=== PATIENT | male | born 1965 | race African-American/Black ===

== ENCOUNTER 2017-10-17 04:00 | Emergency (ER) | payer OTHER ==
[~2017-10-17] VITALS: Ht 188 cm; Wt 97.7 kg
[~2017-10-17 04:00] MED LIST: ASPI-1188 PO; CHLO25TA3 PO; DIPH50 PO; DIVA250T45 PO; DOCU250C91 PO; ESOM20CA31 PO; LACT300R PO; MIRT30 PO; PALI6 PO; PERP2TAB6 PO; QUET300T2 PO; SIMV20TA6 PO
[2017-10-17 04:13] LABS: GLUCOSE,POINT OF CARE 120 MG/DL (70-110)
[2017-10-17] MEDS ORDERED: DIVA500T35 PO (04:15)
[2017-10-17] MEDS ORDERED: MULT-1203 PO (04:15)
[2017-10-17] MEDS ORDERED: ACET-48 PO (04:15)
[2017-10-17] MEDS ORDERED: QUET300T2 PO (04:15)
[2017-10-17] MEDS ORDERED: METF500T4 PO (04:15)
[2017-10-17] MEDS ORDERED: TRAM50TA4 PO (04:15)
[2017-10-17] MEDS ORDERED: SUMAtriptan SUCCINATE 6 MG/0.5 ML VIAL SQ ONE (04:30)
[2017-10-17 05:13] VITALS: BP 152/92
== END 2017-10-17 05:20 | disposition home or self-care (01) ==
LOC: EMS 04:01
DX: G44.009 Cluster headache syndrome, unspecified, not intractable (principal); I10 Essential (primary) hypertension; E78.00 Pure hypercholesterolemia, unspecified; F19.90 Other psychoactive substance use, unspecified, uncomplicated; F17.210 Nicotine dependence, cigarettes, uncomplicated; Z88.6 Allergy status to analgesic agent
CPT/HCPCS: 82962; 96372; 99283; J3030

== ENCOUNTER → 2019-03-02 | Outpatient (CLI) | payer OTHER ==
[~2019-03-02] VITALS: Ht 188 cm; Wt 95.0 kg
[~2019-03-02] MED LIST changes: +ACET-48 PO; -CHLO25TA3 PO; +DIVA-78 PO; -DIVA250T45 PO; -LACT300R PO; +METF-960 PO; +MULT-1203 PO; +TRAM50TA4 PO
[2019-03-02 09:15] VITALS: BP 143/90
== END | disposition home or self-care (01) ==
LOC: HBOWC 08:46
PROVIDERS: ATTEND Surgery Plastic and Reconstructive Surgery
DX: S91.302D Unspecified open wound, left foot, subsequent encounter (principal); S91.301D Unspecified open wound, right foot, subsequent encounter; L84 Corns and callosities; I10 Essential (primary) hypertension; F17.210 Nicotine dependence, cigarettes, uncomplicated; E78.00 Pure hypercholesterolemia, unspecified; X58.XXXD Exposure to other specified factors, subsequent encounter

== ENCOUNTER → 2019-03-16 | Outpatient (CLI) | payer OTHER ==
[~2019-03-16] MED LIST changes: +CHL25 PO; +MIRT15 PO; +SODIUM HYPOCHLORITE 0.25% [HALF STRENGTH] 473 ML SOLUTION TP ONE
[2019-03-16 11:04] VITALS: BP 140/72
== END | disposition home or self-care (01) ==
LOC: HBOWC 09:59
PROVIDERS: ATTEND Surgery Plastic and Reconstructive Surgery
DX: S91.302D Unspecified open wound, left foot, subsequent encounter (principal); S91.301D Unspecified open wound, right foot, subsequent encounter; L84 Corns and callosities; I10 Essential (primary) hypertension; F17.210 Nicotine dependence, cigarettes, uncomplicated; E78.00 Pure hypercholesterolemia, unspecified; X58.XXXD Exposure to other specified factors, subsequent encounter
CPT/HCPCS: 11043

== ENCOUNTER 2020-04-12 02:31 | Emergency (ER) | payer OTHER ==
[~2020-04-12] VITALS: Ht 188 cm; Wt 94.5 kg
[~2020-04-12 02:31] MED LIST changes: -ACET-48 PO; +ACET-49 PO; -ASPI-1188 PO; +ASPI-1522 PO; -DIPH50 PO; -DIVA-78 PO; +DOCU-342 PO; -DOCU250C91 PO; -METF-960 PO; +MIRT-89 PO; -MIRT15 PO; -MIRT30 PO; -PALI6 PO; -PERP2TAB6 PO; -QUET300T2 PO; +SIMV-43 PO; -SIMV20TA6 PO; -SODIUM HYPOCHLORITE 0.25% [HALF STRENGTH] 473 ML SOLUTION TP ONE; -TRAM50TA4 PO
[2020-04-12] MEDS ORDERED: TRIL8 PO (02:37)
[2020-04-12] MEDS ORDERED: QUET25TA PO (02:37)
[2020-04-12] MEDS ORDERED: DIVA250T45 PO (02:37)
[2020-04-12 03:21] LABS: EOSINOPHILS % (AUTO) 2.1 % (1.0-6.0); HEMATOCRIT 45.4 % (41-53); HEMOGLOBIN 16.3 g/dL (13.5-17.5); LYMPHOCYTES # (AUTO) 2.3 K/uL (1.0-4.8); LYMPHOCYTES % (AUTO) 37.6 % (22.0-44.0); MEAN CORPUSCULAR HEMOGLOBIN 34.7 pg (26.0-34.0); MEAN CORPUSCULAR HGB CONC 35.9 G/dL (31.0-37.0); MEAN CORPUSCULAR VOLUME 97 fL (80-100); MONOCYTES # (AUTO) 0.6 K/uL (0.1-1.0); MONOCYTES % (AUTO) 9.1 % (2.0-9.0); NEUTROPHILS # (AUTO) 3.1 K/uL (1.8-7.7); NEUTROPHILS % (AUTO) 50.2 % (40.0-70.0); PLATELET COUNT (AUTO) 322 K/uL (150-450); RED CELL DISTRIBUTION WIDTH 13.4 % (11.5-14.5)
[2020-04-12 03:30] LABS: ANION GAP 5 mmol/L (8-16); CALCIUM, TOTAL 9.6 mg/dL (8.8-10.5); CARBON DIOXIDE 30 mmol/L (22-29); CHLORIDE 94 mmol/L (98-107); CREATININE 0.86 mg/dL (0.60-1.30); GLOMERULAR FILTR. RATE CALC > 60 mL/min (>60); GLUCOSE,RANDOM 126 mg/dL (70-110); POTASSIUM 4.1 mmol/L (3.5-5.1); SODIUM SERUM 129 mmol/L (136-145); UREA NITROGEN, BLOOD 7 mg/dL (7-18)
[2020-04-12 03:35] LABS: ALANINE AMINOTRANSFERASE 33 U/L (12-78); ALBUMIN 3.6 g/dL (3.4-5.0); ALKALINE PHOSPHATASE 98 U/L (46-116); ASPARTATE AMINOTRANSFERASE 19 U/L (15-37); BILIRUBIN,TOTAL 0.4 mg/dL (0.1-1.0); TOTAL PROTEIN, SERUM 8.6 g/dL (6.4-8.2)
[2020-04-12 03:46] LABS: GLUCOSE,POINT OF CARE 132 MG/DL (70-110)
[2020-04-12 03:51] LABS: B-TYPE NATRIURETIC PEPTIDE < 5 pg/mL (0-100)
[2020-04-12 03:59] LABS: PLATELET MORPHOLOGY COMMENT LARGE PLTS PRESENT
[2020-04-12 04:35] VITALS: BP 145/88
== END 2020-04-12 04:45 | disposition home or self-care (01) ==
LOC: EMS 02:32
DX: R52 Pain, unspecified (principal); I10 Essential (primary) hypertension; E78.00 Pure hypercholesterolemia, unspecified; F31.9 Bipolar disorder, unspecified; F20.9 Schizophrenia, unspecified; F17.210 Nicotine dependence, cigarettes, uncomplicated; F15.90 Other stimulant use, unspecified, uncomplicated
CPT/HCPCS: 93005

== ENCOUNTER 2020-04-12 23:00 | Emergency (ER) | payer OTHER ==
[~2020-04-12] VITALS: Ht 165.1 cm; Wt 75.0 kg
[~2020-04-12 23:00] MED LIST changes: +DIVA250T45 PO; +QUET25TA PO; +TRIL8 PO
[2020-04-12 23:58] LABS: BASOPHILS % (AUTO) 0.8 % (0.0-2.0); EOSINOPHILS % (AUTO) 1.7 % (1.0-6.0); HEMATOCRIT 44.8 % (41-53); HEMOGLOBIN 15.9 g/dL (13.5-17.5); LYMPHOCYTES # (AUTO) 2.1 K/uL (1.0-4.8); LYMPHOCYTES % (AUTO) 36.4 % (22.0-44.0); MEAN CORPUSCULAR HEMOGLOBIN 34.3 pg (26.0-34.0); MEAN CORPUSCULAR HGB CONC 35.5 G/dL (31.0-37.0); MEAN CORPUSCULAR VOLUME 97 fL (80-100); MONOCYTES # (AUTO) 0.6 K/uL (0.1-1.0); MONOCYTES % (AUTO) 9.8 % (2.0-9.0); NEUTROPHILS % (AUTO) 51.3 % (40.0-70.0); PLATELET COUNT (AUTO) 327 K/uL (150-450); RED BLOOD CELL COUNT(AUTO) 4.63 MIL/uL (4.50-5.90); RED CELL DISTRIBUTION WIDTH 13.4 % (11.5-14.5)
[2020-04-13 00:10] LABS: ANION GAP 8 mmol/L (8-16); CALCIUM, TOTAL 9.5 mg/dL (8.8-10.5); CARBON DIOXIDE 26 mmol/L (22-29); CHLORIDE 94 mmol/L (98-107); CREATININE 0.88 mg/dL (0.60-1.30); GLOMERULAR FILTR. RATE CALC > 60 mL/min (>60); GLUCOSE,RANDOM 117 mg/dL (70-110); POTASSIUM 4.2 mmol/L (3.5-5.1); SODIUM SERUM 128 mmol/L (136-145); UREA NITROGEN, BLOOD 10 mg/dL (7-18)
[2020-04-13 00:25] LABS: ALANINE AMINOTRANSFERASE 33 U/L (12-78); ALBUMIN 3.6 g/dL (3.4-5.0); ALKALINE PHOSPHATASE 96 U/L (46-116); ASPARTATE AMINOTRANSFERASE 19 U/L (15-37); BILIRUBIN,TOTAL 0.5 mg/dL (0.1-1.0); THYROID STIMULATING HORMONE 1.02 uIU/mL (0.36-3.74); TOTAL PROTEIN, SERUM 8.5 g/dL (6.4-8.2)
[2020-04-13 03:15] VITALS: BP 150/83
== END 2020-04-13 03:28 | disposition home or self-care (01) ==
LOC: EMS 23:00
DX: R51 Headache (principal); R53.83 Other fatigue; F15.90 Other stimulant use, unspecified, uncomplicated; F17.210 Nicotine dependence, cigarettes, uncomplicated; E78.00 Pure hypercholesterolemia, unspecified; I10 Essential (primary) hypertension; F20.9 Schizophrenia, unspecified; Z79.82 Long term (current) use of aspirin; Z79.899 Other long term (current) drug therapy
CPT/HCPCS: 70450; 84443; 93005

== ENCOUNTER 2020-04-15 15:20 | Inpatient (IN) | payer MEDICAID, OTHER ==
[~2020-04-15] VITALS: Ht 180.3 cm; Wt 83.0 kg
[~2020-04-15 15:20] MED LIST changes: +DIVA-85 PO; -DIVA250T45 PO
[2020-04-15 17:37] LABS: BASOPHILS % (AUTO) 1.1 % (0.0-2.0); EOSINOPHILS % (AUTO) 0.4 % (1.0-6.0); HEMATOCRIT 44.4 % (41-53); HEMOGLOBIN 15.6 g/dL (13.5-17.5); LYMPHOCYTES # (AUTO) 1.3 K/uL (1.0-4.8); LYMPHOCYTES % (AUTO) 20.6 % (22.0-44.0); MEAN CORPUSCULAR HEMOGLOBIN 34.2 pg (26.0-34.0); MEAN CORPUSCULAR HGB CONC 35.2 G/dL (31.0-37.0); MEAN CORPUSCULAR VOLUME 97 fL (80-100); MONOCYTES # (AUTO) 0.7 K/uL (0.1-1.0); MONOCYTES % (AUTO) 10.4 % (2.0-9.0); NEUTROPHILS # (AUTO) 4.4 K/uL (1.8-7.7); NEUTROPHILS % (AUTO) 67.5 % (40.0-70.0); PLATELET COUNT (AUTO) 338 K/uL (150-450); RED BLOOD CELL COUNT(AUTO) 4.58 MIL/uL (4.50-5.90); RED CELL DISTRIBUTION WIDTH 13.4 % (11.5-14.5)
[2020-04-15 17:47] LABS: ANION GAP 6 mmol/L (8-16); CALCIUM, TOTAL 9.9 mg/dL (8.8-10.5); CARBON DIOXIDE 29 mmol/L (22-29); CHLORIDE 98 mmol/L (98-107); CREATININE 0.94 mg/dL (0.60-1.30); GLOMERULAR FILTR. RATE CALC > 60 mL/min (>60); GLUCOSE,RANDOM 110 mg/dL (70-110); POTASSIUM 3.9 mmol/L (3.5-5.1); SODIUM SERUM 133 mmol/L (136-145); UREA NITROGEN, BLOOD 11 mg/dL (7-18)
[2020-04-15 18:02] LABS: ALANINE AMINOTRANSFERASE 45 U/L (12-78); ALBUMIN 3.7 g/dL (3.4-5.0); ALKALINE PHOSPHATASE 111 U/L (46-116); ASPARTATE AMINOTRANSFERASE 32 U/L (15-37); TOTAL PROTEIN, SERUM 8.7 g/dL (6.4-8.2)
[2020-04-15] MEDS ORDERED: HydrOXYzine PAMOATE 50 MG CAPSULE PO PRN (19:15)
[2020-04-15] MEDS ORDERED: GuaiFENesin/D-METHORPHAN [SUGAR-FREE] 200-20MG/10 ML SYRUP UDCUP PO PRN (19:15)
[2020-04-15] MEDS ORDERED: QUEtiapine FUMARATE 100 MG TABLET PO PRN (19:15)
[2020-04-15] MEDS ORDERED: PROMETHAZINE HCL 25 MG TABLET PO PRN (19:15)
[2020-04-15] MEDS ORDERED: MAG HYDROX/AL HYDROX/SIMETH ES 30 ML SUSPENSION UDCUP PO PRN (19:15)
[2020-04-15] MEDS ORDERED: TUBERCULIN, PURIFIED PROTEIN DERIVATIVE 5 TU/0.1 ML SYRINGE ID ONE (19:15)
[2020-04-15] MEDS ORDERED: ACETAMINOPHEN 325 MG TABLET PO PRN (19:15)
[2020-04-15] MEDS ORDERED: MAGNESIUM HYDROXIDE SUSPENSION 30 ML UDCUP PO PRN (19:15)
[2020-04-15] MEDS ORDERED: LOPERAMIDE HCL 2 MG CAPSULE PO PRN (19:15)
[2020-04-15] MEDS ORDERED: LORazepam 2 MG TABLET PO PRN (19:15)
[2020-04-15] MEDS ORDERED: FLUoxetine HCL 10 MG CAPSULE PO ONE ×2 (19:15)
[2020-04-15] MEDS ORDERED: ZOLPIDEM TARTRATE 10 MG TABLET PO PRN (19:15)
[2020-04-15] MEDS: DIVALPROEX SODIUM 500 MG ER TABLET PO SCH ×2 (20:55→20:57)
[2020-04-15] MEDS: THIAMINE 100 MG TABLET PO SCH ×2 (20:55→20:58)
[2020-04-15] MEDS ORDERED: QUEtiapine FUMARATE 200 MG TABLET PO SCH (21:00)
[2020-04-15] MEDS ORDERED: MIRTAZAPINE 15 MG TABLET PO SCH (21:00)
[2020-04-15 22:02] LABS: APPEARANCE,URINE CLEAR (CLEAR); GLUCOSE, URINE (UA) NEGATIVE (NEGATIVE); KETONES,URINE TRACE mg/dL (NEGATIVE); LEUKOCYTE ESTERASE ,URINE NEGATIVE (NEGATIVE); NITRATE,URINE NEGATIVE (NEGATIVE); OCCULT BLOOD,URINE NEGATIVE (NEGATIVE); PROTEIN,URINE POS 1+ (NEGATIVE)
[2020-04-15 22:03] LABS: BILIRUBIN,URINE PRELIM. POSITIVE (NEGATIVE)
[2020-04-15 22:08] LABS: AMPHET/METH SCREEN,URINE NEGATIVE (NEGATIVE); BARBITURATE SCREEN, URINE NEGATIVE (NEGATIVE); BENZODIAZEPINES SCREEN,URINE NEGATIVE (NEGATIVE); CANNABINOID SCREEN,URINE NEGATIVE (NEGATIVE); COCAINE SCREEN,URINE NEGATIVE (NEGATIVE); METHADONE SCREEN, URINE NEGATIVE (NEGATIVE); OPIATE SCREEN,URINE NEGATIVE (NEGATIVE)
[2020-04-15 22:10] LABS: PHENCYCLIDINE SCREEN,URINE NEGATIVE (NEGATIVE)
[2020-04-15 23:35] VITALS: BP 136/78
[2020-04-16 00:01] VITALS: BP 136/78
[2020-04-16] MEDS ORDERED: PNEUMOCOCCAL VACCINE POLYVALENT 0.5 ML VIAL [PPSV23] IM ONE (00:15)
[2020-04-16] MEDS: FOLIC ACID 1 MG TABLET PO SCH (09:00)
[2020-04-16] MEDS: MULTIVITAMINS WITH MINERALS, THERAPEUTIC TABLET PO SCH (09:00)
[2020-04-16] MEDS: ASPIRIN 81 MG EC TABLET PO SCH (09:00)
[2020-04-16] MEDS: FLUoxetine HCL 10 MG CAPSULE PO SCH (09:15)
[2020-04-16 09:47] VITALS: BP 131/77
[2020-04-16 16:07] VITALS: BP 129/87
[2020-04-16] MEDS: DIVALPROEX SODIUM 500 MG ER TABLET PO SCH (16:12)
[2020-04-16] MEDS: THIAMINE 100 MG TABLET PO SCH (16:12)
[2020-04-16] MEDS: CHLORTHALIDONE 25 MG TABLET PO SCH (16:12)
[2020-04-16] MEDS: MIRTAZAPINE 15 MG TABLET PO SCH (20:44)
[2020-04-16] MEDS: SIMVASTATIN 20 MG TABLET PO SCH (20:44)
[2020-04-16] MEDS: QUEtiapine FUMARATE 200 MG TABLET PO SCH (20:44)
[2020-04-17 02:12] VITALS: BP 135/90
[2020-04-17] MEDS: CHLORTHALIDONE 25 MG TABLET PO SCH (08:36)
[2020-04-17] MEDS: ASPIRIN 81 MG EC TABLET PO SCH (08:45)
[2020-04-17] MEDS: DIVALPROEX SODIUM 500 MG ER TABLET PO SCH ×2 (08:45→17:00)
[2020-04-17] MEDS: FLUoxetine HCL 10 MG CAPSULE PO SCH (08:45)
[2020-04-17] MEDS: FOLIC ACID 1 MG TABLET PO SCH (08:45)
[2020-04-17] MEDS: MULTIVITAMINS WITH MINERALS, THERAPEUTIC TABLET PO SCH (08:46)
[2020-04-17] MEDS: THIAMINE 100 MG TABLET PO SCH ×2 (08:46→17:00)
[2020-04-17 09:24] VITALS: BP 135/63
[2020-04-17 16:18] VITALS: BP 139/85
[2020-04-17] MEDS: QUEtiapine FUMARATE 200 MG TABLET PO SCH (21:00)
[2020-04-17] MEDS: SIMVASTATIN 20 MG TABLET PO SCH (21:00)
[2020-04-17] MEDS: MIRTAZAPINE 15 MG TABLET PO SCH (21:00)
[2020-04-18 01:11] VITALS: BP 124/61
[2020-04-18 07:52] LABS: HEMOGLOBIN A1C 5.8 % (3.8-5.6)
[2020-04-18 08:06] LABS: ANION GAP 14 mmol/L (8-16); CALCIUM, TOTAL 9.1 mg/dL (8.8-10.5); CARBON DIOXIDE 24 mmol/L (22-29); CHLORIDE 95 mmol/L (98-107); CHOL/HDL RATIO 3.6 (4.2-7.3); CHOLESTEROL 126 mg/dL (131-200); CREATININE 0.76 mg/dL (0.60-1.30); FREE T4 (FREE THYROXINE) 1.57 ng/dL (0.76-1.46); GLOMERULAR FILTR. RATE CALC > 60 mL/min (>60); GLUCOSE,RANDOM 76 mg/dL (70-110); HDL CHOLESTEROL 35 mg/dL (40-60); LDL CHOL (CALC.) 79 mg/dL (0-130); POTASSIUM 3.7 mmol/L (3.5-5.1); SODIUM SERUM 133 mmol/L (136-145); THYROID STIMULATING HORMONE 0.34 uIU/mL (0.36-3.74); TRIGLYCERIDES 59 mg/dL (15-150); UREA NITROGEN, BLOOD 13 mg/dL (7-18)
[2020-04-18 08:36] VITALS: BP 129/79
[2020-04-18] MEDS: THIAMINE 100 MG TABLET PO SCH ×2 (09:00→17:00)
[2020-04-18] MEDS: DIVALPROEX SODIUM 500 MG ER TABLET PO SCH ×2 (09:00→17:00)
[2020-04-18] MEDS: FOLIC ACID 1 MG TABLET PO SCH (09:00)
[2020-04-18] MEDS: FLUoxetine HCL 10 MG CAPSULE PO SCH (09:00)
[2020-04-18] MEDS: CHLORTHALIDONE 25 MG TABLET PO SCH (09:00)
[2020-04-18] MEDS: MULTIVITAMINS WITH MINERALS, THERAPEUTIC TABLET PO SCH (09:00)
[2020-04-18] MEDS: ASPIRIN 81 MG EC TABLET PO SCH (09:00)
[2020-04-18] MEDS: SULFAMETHOX/TRIMETH DS 800-160 MG/TABLET PO SCH ×2 (09:00→17:00)
[2020-04-18 12:00] VITALS: BP 132/77
[2020-04-18 16:13] VITALS: BP 141/93
[2020-04-18] MEDS: QUEtiapine FUMARATE 200 MG TABLET PO SCH (21:00)
[2020-04-18] MEDS: MIRTAZAPINE 15 MG TABLET PO SCH (21:00)
[2020-04-18] MEDS: SIMVASTATIN 20 MG TABLET PO SCH (21:00)
[2020-04-19 06:25] VITALS: BP 130/78
[2020-04-19 08:34] VITALS: BP 146/79
[2020-04-19] MEDS: CHLORTHALIDONE 25 MG TABLET PO SCH (09:00)
[2020-04-19] MEDS: FLUoxetine HCL 10 MG CAPSULE PO SCH (09:00)
[2020-04-19] MEDS: THIAMINE 100 MG TABLET PO SCH ×2 (09:00→16:31)
[2020-04-19] MEDS: ASPIRIN 81 MG EC TABLET PO SCH (09:00)
[2020-04-19] MEDS: DIVALPROEX SODIUM 500 MG ER TABLET PO SCH ×2 (09:00→16:31)
[2020-04-19] MEDS: FOLIC ACID 1 MG TABLET PO SCH (09:00)
[2020-04-19] MEDS: SULFAMETHOX/TRIMETH DS 800-160 MG/TABLET PO SCH ×2 (09:00→16:31)
[2020-04-19] MEDS: MULTIVITAMINS WITH MINERALS, THERAPEUTIC TABLET PO SCH (09:00)
[2020-04-19] MEDS ORDERED: PALIPERIDONE 1.5 MG ER TABLET PO PRN (14:45)
[2020-04-19] MEDS ORDERED: PALIPERIDONE PALMITATE 234 MG/1.5 ML SYRINGE IM ONE (14:45)
[2020-04-19 16:15] VITALS: BP 134/65
[2020-04-19] MEDS: PALIPERIDONE 3 MG ER TABLET PO SCH (20:49)
[2020-04-19] MEDS: SIMVASTATIN 20 MG TABLET PO SCH (20:49)
[2020-04-19] MEDS: MIRTAZAPINE 15 MG TABLET PO SCH (20:49)
[2020-04-20 00:58] VITALS: BP 127/63
[2020-04-20 08:12] VITALS: BP 127/79
[2020-04-20] MEDS: THIAMINE 100 MG TABLET PO SCH ×2 (09:00→16:36)
[2020-04-20] MEDS: SULFAMETHOX/TRIMETH DS 800-160 MG/TABLET PO SCH ×2 (09:00→16:36)
[2020-04-20] MEDS: CHLORTHALIDONE 25 MG TABLET PO SCH (09:00)
[2020-04-20] MEDS: MULTIVITAMINS WITH MINERALS, THERAPEUTIC TABLET PO SCH (09:00)
[2020-04-20] MEDS: ASPIRIN 81 MG EC TABLET PO SCH (09:00)
[2020-04-20] MEDS: FOLIC ACID 1 MG TABLET PO SCH (09:00)
[2020-04-20] MEDS: DIVALPROEX SODIUM 500 MG ER TABLET PO SCH ×2 (09:00→16:36)
[2020-04-20] MEDS: FLUoxetine HCL 10 MG CAPSULE PO SCH (09:00)
[2020-04-20 16:13] VITALS: BP 137/73
[2020-04-20] MEDS: SIMVASTATIN 20 MG TABLET PO SCH (20:37)
[2020-04-20] MEDS: PALIPERIDONE 3 MG ER TABLET PO SCH (20:37)
[2020-04-20] MEDS: MIRTAZAPINE 15 MG TABLET PO SCH (20:37)
[2020-04-21 01:25] VITALS: BP 147/86
[2020-04-21 08:20] VITALS: BP 142/86
[2020-04-21] MEDS: DIVALPROEX SODIUM 500 MG ER TABLET PO SCH ×2 (09:00→17:00)
[2020-04-21] MEDS: MULTIVITAMINS WITH MINERALS, THERAPEUTIC TABLET PO SCH (09:00)
[2020-04-21] MEDS: FLUoxetine HCL 10 MG CAPSULE PO SCH (09:00)
[2020-04-21] MEDS: ASPIRIN 81 MG EC TABLET PO SCH (09:00)
[2020-04-21] MEDS: THIAMINE 100 MG TABLET PO SCH ×2 (09:00→17:00)
[2020-04-21] MEDS: SULFAMETHOX/TRIMETH DS 800-160 MG/TABLET PO SCH ×2 (09:00→17:00)
[2020-04-21] MEDS: FOLIC ACID 1 MG TABLET PO SCH (09:00)
[2020-04-21] MEDS: CHLORTHALIDONE 25 MG TABLET PO SCH (09:00)
[2020-04-21 16:31] VITALS: BP 140/66
[2020-04-21] MEDS: SIMVASTATIN 20 MG TABLET PO SCH (20:39)
[2020-04-21] MEDS: MIRTAZAPINE 15 MG TABLET PO SCH (20:39)
[2020-04-21] MEDS: PALIPERIDONE 3 MG ER TABLET PO SCH (20:39)
[2020-04-22] VITALS: BP 138/79
[2020-04-22 08:17] VITALS: BP 131/81
[2020-04-22] MEDS: SULFAMETHOX/TRIMETH DS 800-160 MG/TABLET PO SCH ×2 (08:43→17:00)
[2020-04-22] MEDS: ASPIRIN 81 MG EC TABLET PO SCH (08:43)
[2020-04-22] MEDS: CHLORTHALIDONE 25 MG TABLET PO SCH (08:44)
[2020-04-22] MEDS: MULTIVITAMINS WITH MINERALS, THERAPEUTIC TABLET PO SCH (08:44)
[2020-04-22] MEDS: FOLIC ACID 1 MG TABLET PO SCH (08:44)
[2020-04-22] MEDS: THIAMINE 100 MG TABLET PO SCH ×2 (08:44→17:00)
[2020-04-22 16:07] VITALS: BP 138/64
[2020-04-22] MEDS: SIMVASTATIN 20 MG TABLET PO SCH (20:15)
[2020-04-23 01:36] VITALS: BP 136/86
[2020-04-23] MEDS: MULTIVITAMINS WITH MINERALS, THERAPEUTIC TABLET PO SCH (09:00)
[2020-04-23] MEDS: FOLIC ACID 1 MG TABLET PO SCH (09:00)
[2020-04-23] MEDS: ASPIRIN 81 MG EC TABLET PO SCH (09:00)
[2020-04-23] MEDS: THIAMINE 100 MG TABLET PO SCH ×2 (09:00→17:00)
[2020-04-23] MEDS: CHLORTHALIDONE 25 MG TABLET PO SCH (09:00)
[2020-04-23 10:06] VITALS: BP 135/71
[2020-04-23 16:57] VITALS: BP 134/70
[2020-04-23] MEDS: SIMVASTATIN 20 MG TABLET PO SCH (20:04)
[2020-04-24] VITALS: BP 138/81
[2020-04-24] MEDS: MULTIVITAMINS WITH MINERALS, THERAPEUTIC TABLET PO SCH (08:40)
[2020-04-24] MEDS: FOLIC ACID 1 MG TABLET PO SCH (08:40)
[2020-04-24] MEDS: THIAMINE 100 MG TABLET PO SCH ×2 (08:40→17:00)
[2020-04-24] MEDS: ASPIRIN 81 MG EC TABLET PO SCH (08:40)
[2020-04-24] MEDS: CHLORTHALIDONE 25 MG TABLET PO SCH (08:40)
[2020-04-24 09:35] VITALS: BP 135/76
[2020-04-24 16:24] VITALS: BP 114/96
[2020-04-24] MEDS: SIMVASTATIN 20 MG TABLET PO SCH (20:14)
[2020-04-25 00:15] VITALS: BP 112/76
[2020-04-25 08:10] VITALS: BP 147/90
[2020-04-25] MEDS: FOLIC ACID 1 MG TABLET PO SCH (08:48)
[2020-04-25] MEDS: THIAMINE 100 MG TABLET PO SCH (09:00)
[2020-04-25] MEDS: MULTIVITAMINS WITH MINERALS, THERAPEUTIC TABLET PO SCH (09:00)
[2020-04-25] MEDS: CHLORTHALIDONE 25 MG TABLET PO SCH (09:00)
[2020-04-25] MEDS: ASPIRIN 81 MG EC TABLET PO SCH (09:00)
[2020-04-25] MEDS ORDERED: PALIPERIDONE PALMITATE 156 MG/ML SYRINGE IM ONE (09:00)
[2020-04-25] MEDS ORDERED: PALI117D IM (15:49)
[2020-04-25 16:33] VITALS: BP 154/75
[2020-04-25] MEDS: SIMVASTATIN 20 MG TABLET PO SCH (20:19)
[2020-04-26 01:14] VITALS: BP 125/84
[2020-04-26 08:15] VITALS: BP 132/75
[2020-04-26] MEDS: ASPIRIN 81 MG EC TABLET PO SCH (09:00)
[2020-04-26] MEDS: MULTIVITAMINS WITH MINERALS, THERAPEUTIC TABLET PO SCH (09:00)
[2020-04-26] MEDS: CHLORTHALIDONE 25 MG TABLET PO SCH (09:00)
== END 2020-04-26 13:05 | disposition home or self-care (01) | DRG 750 ==
LOC: EMS 15:22 → B2S 20:54 → EMS 22:38
PROVIDERS: ADMIT Psychiatry & Neurology Psychiatry; ATTEND Psychiatry & Neurology Psychiatry
DX: F25.0 Schizoaffective disorder, bipolar type (principal); N28.1 Cyst of kidney, acquired; Z91.19 Patient's noncompliance with other medical treatment and regimen; E78.00 Pure hypercholesterolemia, unspecified; I10 Essential (primary) hypertension; M54.9 Dorsalgia, unspecified; M79.673 Pain in unspecified foot; Z88.6 Allergy status to analgesic agent; Z87.442 Personal history of urinary calculi; Z98.1 Arthrodesis status; E78.5 Hyperlipidemia, unspecified; Z87.440 Personal history of urinary (tract) infections; F17.200 Nicotine dependence, unspecified, uncomplicated; F41.9 Anxiety disorder, unspecified; G47.00 Insomnia, unspecified; K59.00 Constipation, unspecified; Z91.14 Patient's other noncompliance with medication regimen; Z28.21 Immunization not carried out because of patient refusal
CPT/HCPCS: 83036; 84439; 84443; 86592; G0480

== ENCOUNTER 2020-05-05 20:14 | Emergency (ER) | payer MEDICAID, OTHER ==
[~2020-05-05] VITALS: Ht 177.8 cm; Wt 73.6 kg
[~2020-05-05 20:14] MED LIST changes: -ACET-49 PO; -ASPI-1522 PO; -CHL25 PO; -DIVA-85 PO; -DOCU-342 PO; -ESOM20CA31 PO; -MIRT-89 PO; -MULT-1203 PO; +PALI117D IM; -QUET25TA PO; -SIMV-43 PO; -TRIL8 PO
[2020-05-05 22:59] LABS: BASOPHILS % (AUTO) 1.7 % (0.0-2.0); HEMATOCRIT 40.7 % (41-53); LYMPHOCYTES % (AUTO) 27.4 % (22.0-44.0); MEAN CORPUSCULAR HEMOGLOBIN 33.3 pg (26.0-34.0); MEAN CORPUSCULAR HGB CONC 34.4 G/dL (31.0-37.0); MEAN CORPUSCULAR VOLUME 97 fL (80-100); MONOCYTES # (AUTO) 0.6 K/uL (0.1-1.0); MONOCYTES % (AUTO) 8.7 % (2.0-9.0); NEUTROPHILS # (AUTO) 4.4 K/uL (1.8-7.7); NEUTROPHILS % (AUTO) 60.2 % (40.0-70.0); PLATELET COUNT (AUTO) 445 K/uL (150-450); RED BLOOD CELL COUNT(AUTO) 4.21 MIL/uL (4.50-5.90); RED CELL DISTRIBUTION WIDTH 13.5 % (11.5-14.5)
[2020-05-05 23:02] LABS: APPEARANCE,URINE CLEAR (CLEAR); BILIRUBIN,URINE NEGATIVE (NEGATIVE); GLUCOSE, URINE (UA) NEGATIVE (NEGATIVE); KETONES,URINE NEGATIVE (NEGATIVE); LEUKOCYTE ESTERASE ,URINE NEGATIVE (NEGATIVE); NITRATE,URINE NEGATIVE (NEGATIVE); OCCULT BLOOD,URINE TRACE (NEGATIVE); PH,URINE 6.5 (5.0-8.0); PROTEIN,URINE NEGATIVE (NEGATIVE)
[2020-05-05 23:10] LABS: BACTERIA,URINE None Seen /HPF (None Seen); RBC,URINE 0-2 /HPF (0-2); SQUAMOUS EPITHELIAL CELL,UR Rare /LPF (None Seen); WBC,URINE None Seen /HPF (0-5)
[2020-05-05 23:10] LABS: ANION GAP 6 mmol/L (8-16); CALCIUM, TOTAL 9.1 mg/dL (8.8-10.5); CARBON DIOXIDE 30 mmol/L (22-29); CHLORIDE 98 mmol/L (98-107); CREATININE 0.73 mg/dL (0.60-1.30); GLOMERULAR FILTR. RATE CALC > 60 mL/min (>60); GLUCOSE,RANDOM 100 mg/dL (70-110); POTASSIUM 4.2 mmol/L (3.5-5.1); SODIUM SERUM 134 mmol/L (136-145); UREA NITROGEN, BLOOD 12 mg/dL (7-18)
[2020-05-05 23:15] LABS: ALANINE AMINOTRANSFERASE 46 U/L (12-78); ALKALINE PHOSPHATASE 86 U/L (46-116); ASPARTATE AMINOTRANSFERASE 23 U/L (15-37); BILIRUBIN,TOTAL 0.1 mg/dL (0.1-1.0); TOTAL PROTEIN, SERUM 8.2 g/dL (6.4-8.2)
[2020-05-05] MEDS ORDERED: ACETAMINOPHEN 500 MG TABLET PO ONE (23:45)
[2020-05-06] VITALS: BP 141/88
== END 2020-05-06 00:12 | disposition home or self-care (01) ==
LOC: EMS 20:32
DX: G89.29 Other chronic pain (principal); F20.9 Schizophrenia, unspecified; M79.10 Myalgia, unspecified site; F31.9 Bipolar disorder, unspecified; I10 Essential (primary) hypertension; E78.00 Pure hypercholesterolemia, unspecified; F17.210 Nicotine dependence, cigarettes, uncomplicated; F11.90 Opioid use, unspecified, uncomplicated; Z88.6 Allergy status to analgesic agent

== ENCOUNTER 2020-07-30 17:42 | Emergency (ER) | payer OTHER ==
[~2020-07-30] VITALS: Ht 177.8 cm; Wt 72.7 kg
[2020-07-30] MEDS ORDERED: ACETAMINOPHEN 325 MG TABLET PO ONE (19:30)
[2020-07-30 19:57] LABS: COVID AG,FIA SOURCE NASOPHARYNGEAL
[2020-07-30 20:39] VITALS: BP 129/75
== END 2020-07-30 20:41 | disposition home or self-care (01) ==
LOC: EMS 17:44
DX: R05 Cough (principal); M79.10 Myalgia, unspecified site; R09.81 Nasal congestion; F31.9 Bipolar disorder, unspecified; E78.00 Pure hypercholesterolemia, unspecified; I10 Essential (primary) hypertension; F17.210 Nicotine dependence, cigarettes, uncomplicated; Z20.828 Contact with and (suspected) exposure to other viral communicable diseases; Z88.6 Allergy status to analgesic agent
CPT/HCPCS: 87426; 99283; U0003

== ENCOUNTER 2020-10-01 10:49 | Emergency (ER) | payer OTHER ==
[~2020-10-01] VITALS: Ht 188 cm; Wt 95.5 kg
[2020-10-01 12:11] VITALS: BP 150/75
[2020-10-01] MEDS ORDERED: ACETAMINOPHEN 500 MG TABLET PO ONE (12:30)
== END 2020-10-01 12:56 | disposition home or self-care (01) ==
LOC: EMS 10:51
DX: M54.5 Low back pain (principal); F31.9 Bipolar disorder, unspecified; E78.00 Pure hypercholesterolemia, unspecified; I10 Essential (primary) hypertension; F20.9 Schizophrenia, unspecified; F17.210 Nicotine dependence, cigarettes, uncomplicated; Z88.6 Allergy status to analgesic agent
CPT/HCPCS: Z7502; Z7610

== ENCOUNTER 2023-07-05 11:21 | Emergency (ER) | payer OTHER ==
[~2023-07-05] VITALS: Ht 172.7 cm; Wt 81.8 kg
[~2023-07-05 11:21] MED LIST changes: +LISI-894 PO; +METF-1211 PO; -PALI117D IM; +PIPE3.3719 IV; +VANC1FZ IV
[2023-07-05 11:26] VITALS: TEMP 98.2
[2023-07-05] MEDS ORDERED: HYDR25TA82 PO (11:30)
[2023-07-05] MEDS ORDERED: LISI20TA24 PO (11:30)
[2023-07-05] MEDS ORDERED: DOCU100C33 PO (11:30)
[2023-07-05] MEDS ORDERED: AMLO5TAB66 PO (11:30)
[2023-07-05] MEDS ORDERED: QUET300T19 PO (11:30)
[2023-07-05] MEDS ORDERED: PERP2TAB PO (11:30)
[2023-07-05] MEDS ORDERED: MIRT45TA83 PO (11:30)
[2023-07-05] MEDS ORDERED: PALI117D IM (11:30)
[2023-07-05] MEDS ORDERED: SIMV10TA97 PO (11:30)
[2023-07-05] MEDS ORDERED: DIVA500T53 PO (11:30)
[2023-07-05] MEDS ORDERED: ASPI-1444 PO (11:30)
[2023-07-05] MEDS ORDERED: HYDR12.56 PO (11:30)
[2023-07-05] MEDS ORDERED: ESOM20CA39 PO (11:30)
[2023-07-05 14:09] VITALS: BP 131/75; PULSE 78; RESP 16
== END 2023-07-05 15:15 | disposition home or self-care (01) ==
LOC: EMS 11:24
DX: L85.8 Other specified epidermal thickening (principal); F31.9 Bipolar disorder, unspecified; E11.9 Type 2 diabetes mellitus without complications; E78.00 Pure hypercholesterolemia, unspecified; I10 Essential (primary) hypertension; F20.9 Schizophrenia, unspecified; F17.210 Nicotine dependence, cigarettes, uncomplicated; Z98.890 Other specified postprocedural states; Z88.6 Allergy status to analgesic agent
CPT/HCPCS: 82962; 99282